=== PATIENT | male | born 1955 | race Two or more races ===

== ENCOUNTER 2025-01-13 11:45 | Emergency (ER) | payer OTHER ==
[~2025-01-13] VITALS: Ht 180.3 cm; Wt 108.9 kg
[2025-01-13] MEDS ORDERED: METFORMIN HCL500 M3 PO (12:58)
[2025-01-13] MEDS ORDERED: COZAAR100 MG PO (12:58)
[2025-01-13] MEDS ORDERED: NASAL MIST126 ML (12:58)
[2025-01-13] MEDS ORDERED: NORVASC5 MG PO (12:58)
[2025-01-13] MEDS ORDERED: LIPITOR20 MG PO (12:58)
[2025-01-13] MEDS ORDERED: ORPHENADRINE CITRATE 30 MG/ML AMPUL IM STA (13:26)
[2025-01-13] MEDS ORDERED: KETOROLAC TROMETHAMINE 30 MG VIAL IM STA (13:26)
[2025-01-13] MEDS ORDERED: DEXAMETHASONE SODIUM PHOSPHATE 4 MG/ML VIAL IM STA (13:26)
[2025-01-13] MEDS ORDERED: MEDROLPACK PO (16:09)
[2025-01-13] MEDS ORDERED: NORFLEX100MG PO (16:09)
== END 2025-01-13 16:21 | disposition home or self-care (01) ==
LOC: ER 11:46
DX: S83.8X2A Sprain of other specified parts of left knee, initial encounter (principal); X58.XXXA Exposure to other specified factors, initial encounter; Y93.89 Activity, other specified; Y92.89 Other specified places as the place of occurrence of the external cause; Y99.9 Unspecified external cause status; M17.12 Unilateral primary osteoarthritis, left knee; I10 Essential (primary) hypertension; E11.9 Type 2 diabetes mellitus without complications; Z79.84 Long term (current) use of oral hypoglycemic drugs; Z85.51 Personal history of malignant neoplasm of bladder